=== PATIENT | male | born 2000 | race Caucasian/White ===

== ENCOUNTER → 2021-10-18 | Outpatient (CLI) | payer OTHER ==
[2021-10-20 16:09] LABS: CHLAMYDIA BY NAA Negative (Negative); GONOCOCCUS BY NAA Negative (Negative); TRICH VAG BY NAA Negative (Negative)
== END | disposition home or self-care (01) ==
LOC: LAB SHORT 10:59
PROVIDERS: Physician Assistant
DX: Z20.9 Contact with and (suspected) exposure to unspecified communicable disease (principal)
CPT/HCPCS: 87491; 87591; 87661

== ENCOUNTER 2024-11-13 13:37 | Emergency (ER) | payer OTHER ==
[~2024-11-13] VITALS: Ht 185.4 cm; Wt 108.9 kg
[2024-11-13 13:44] VITALS: BP 122/82
[2024-11-13] MEDS ORDERED: Diphth,Pertuss(Acell),Tet Vac 0.5 ML VIAL IM ONE (13:50)
[2024-11-13] MEDS ORDERED: IBUP800 PO (16:07)
[2024-11-13] MEDS ORDERED: AMOCLA875 PO (16:07)
== END 2024-11-13 16:17 | disposition home or self-care (01) ==
LOC: ER 13:37
DX: S62.633B Displaced fracture of distal phalanx of left middle finger, initial encounter for open fracture (principal); W26.9XXA Contact with unspecified sharp object(s), initial encounter
CPT/HCPCS: 12001; 73140; 90471; 90715; 99283-25